=== PATIENT | male | born 1960 | race African-American/Black ===

== ENCOUNTER 2025-03-26 14:09 | Emergency (ER) | payer MEDICARE, SELFPAY ==
[2025-03-26] VITALS (21 sets, daily range): BP systolic 117–159; BP diastolic 87–107; PULSE 102–119; TEMP 36.7; O2SAT 71–98; BMI 29.5
--- OUTSIDE RECORDS SUMMARY | 2025-03-26 14:16 | XMS_ITS | Clinical Summary ---
Author Organization [facility] Address [address] [place] [address] Care Team Providers Care Sugar Cane Farm Manager Name Role Phone Unavailable Primary Care Provider Unavailabl e Allergies No known active allergies Medications atorvastatin (LIPITOR) 40 mg tablet Take 1 tablet by mouth once daily. 45 tablet 05/07/2020 Active losartan (COZAAR) 25 mg tablet Take 1 tablet by mouth once daily. 45 tablet 05/07/2020 Active amLODIPine (NORVASC) 5 mg tablet Take 1 tablet by mouth twice daily. 1 tablet 3 08/08/2020 Active Active Problems Problem Noted Date Diagnosed Date Syncope 04/19/2020 Obesity, Class III, BMI >= 40 04/19/2020 Pulmonary embolism 04/19/2020 Right femoral vein DVT 04/19/2020 Stroke 04/19/2020 HTN (hypertension) 04/19/2020 Family History Medical History Relation Comments Stroke Maternal Grandmother Hypertension Mother Hypertension Son Relation Status Comments Maternal Grandmother Mother Son Other Social History Tobacco Use Types Packs/Day Years Used Date Smoking Tobacco: Never Smokeless Tobacco: Never Alcohol Use Standard Drinks/Week Comments Yes 0 (1 standard drink = 0.6 oz pur e alcohol) socially Overall Financial Resource Strain (CARDIA) Answe r Date Recorded How hard is it for you to pa y for the very basics like food, housing, medical care, and heating? Not hard at all 05/02/2020 Hunger Vital Sign Answer Date Recorded Within the past 12 months, y ou worried that your food would run out before you got the money to buy more. Never true 05/02/20 20 Within the past 12 months, t he food you bought just didn't last and you didn't have money to get more. Never true 05/02/2020 PRAPARE - Transportation Answer Date Re corded In the past 12 months, has l ack of transportation kept you from medical appointments or from getting medications? No 04/22 In the past 12 months, has l ack of transportation kept you from meetings, work, or from getting things needed for daily living? No 05/02/2020 Area Deprivation Index Answer Date Sampson rded National Score (1-100), lower number is lower ri sk Not on file 07/28/2020 State Score (1-10), lower number is lower risk N ot on file 07/28/2020 Data from: https://www.neighborhoodatlas.medicine.[facility].edu/. Last address used for calculation Not on file 07/28/2020 Education Answer Date Recorded What is the highest level of school you have completed or the highest degree you have received? Bachelor's degree (e.g., BA, AB, BS) 04/19/2020 Sex and Gender Information Value Date Recorded Sex Assigned at Not on file Legal Sex Male 11:45 AM EDT Gender Identity Not on file Sexual Orientation Not on file Last Filed Vital Signs Vital Sign Reading Time Taken Comments Blood Pressure 160/98 06/13/2020 9:18 AM EDT Pulse 68 06/13/2020 9:18 AM EDT Temperature 36.9 C (98.4 F) 05/07/2020 9:59 AM EDT Respiratory Rate 18 05/07/2020 9:59 AM EDT Oxygen Saturation 99% 05/07/2020 9:59 AM EDT Inhaled Oxygen Concentration - - Weight 109.3 kg (241 lb) 06/13/2020 9:18 AM EDT Height 175.3 cm (5' 9 ) 06/13/2020 9:18 AM EDT Body Mass Index 35.59 06/13/2020 9:18 AM EDT Plan of Treatment Health Maintenance Due Date Last Done Comments Anxiety Screening 1976 Depression Screening 1976 Hepatitis C Screening 1976 DTaP,Tdap,Td Vaccine (1 - Tdap) [address] Colonography 10/21/2003 Cologuard (FIT-DNA) 10/21/2003 Colonoscopy 10/21/2003 Colorectal Cancer Screening 10/21/2003 Fecal Occult Blood 10/21/2003 Prostate Cancer Screening Discussion 10/21/2003 Sigmoidoscopy 10/21/2003 Pneumococcal Vaccine: 50+ (1 of 1 - PCV) 2008 Shingrix Vaccine (1 of 2) 2008 Diabetes Screening 04/21/2023 04/21/2020, 04/20/2020 Advance Directive Discussion 08/22/2024 Influenza Vaccine (#1) 2025 0 (Patient/Parent/Guardian Counseled and Declines) RSV Vaccine (1 - 1-dose 75+ series) 2033 Procedures Procedure Name Priority Date/Time Associated Diagnosis Comments COMPRE META PANL STAT 04/21/2020 10:5 7 AM EDT from Last 3 Months or Most Recently Relevant to Health Maintenance Results * COMPREHENSIVE METABOLIC PANEL (AK,AV,EU,FV,HL,MANI,MM,SP) (04/21/2020 10:57 AM EDT) Protein, Total 7.7 6.0 - 8.4 g/dL 04/21/2020 12:31 PM [facility] Albumin 4.2 3.5 - 5.0 g/dL 04/21/2020 12:31 PM [facility] Calcium 9.0 8.5 - 10.5 mg/dL 04/21/2020 12:34 PM [facility] Bilirubin, Total 0.9 0.2 - 1.3 mg/dL 04/21/2020 12:31 PM [facility] Alkaline Phosphatase 77 38 - 113 U/L 04/21/2020 12:31 PM [facility] AST 18 7 - 40 U/L 04/21/2020 12:31 PM [facility] Glucose 94 65 - 100 mg/dL 04/21/2020 12:31 PM [facility] BUN 13 10 - 25 mg/dL 04/21/2020 12:31 PM [facility] Creatinine 1.07 0.70 - 1.40 mg/dL 04/21/2020 12:31 PM [facility] Sodium 135 135 - 146 mmol/L 04/21/2020 12:31 PM [facility] Potassium 4.0 3.5 - 5.0 mmol/L 04/21/2020 12:31 PM EDT [facility] Chloride 99 98 - 110 mmol/L 04/21/2020 12:31 PM EDT [facility] CO2 26 23 - 32 mmol/L 04/21/2020 12:31 PM EDT [facility] Anion Gap 10 9 - 18 mmol/L 04/21/2020 12:31 PM EDT [facility] ALT 16 5 - 50 U/L 04/21/2020 12:31 PM EDT [facility] eGFR- >60 >60 04/21/2020 12:31 PM EDT [facility] eGFR-All Other Races >60 >60 . 04/21/2020 12:31 PM EDT 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
--- OUTSIDE RECORDS SUMMARY | 2025-03-26 14:16 | XMS_ITS | Clinical Summary ---
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 Overview (12/04/2021): Originally entered on incorrect patient on 09/01/2021 by Xavi Pham MD Acute lacunar infarction 12/04/2021 Overview (12/04/2021): Originally entered on incorrect patient on 09/01/2021 by Xavi Pham MD Social History Tobacco Use Types Packs/Day Years Used Date Smoking Tobacco: Never Assessed Sex and Gender Information Value Date Recorded Sex Assigned at Not on file Legal Sex Male 2:37 PM EDT Gender Identity Not on file Sexual Orientation Not on file Last Filed Vital Signs Vital Sign Reading Time Taken Comments Blood Pressure 154/84 09/03/2021 1:00 PM EST Pulse 102 09/03/2021 1:00 PM EST Temperature 36.7 C (98 F) 09/03/2021 11:00 AM EST Respiratory Rate 26 09/03/2021 1:00 PM EST Oxygen Saturation 95% 09/03/2021 1:00 PM EST Inhaled Oxygen Concentration - - Weight 92.4 kg (203 lb 9.9 oz) 08/30/2021 1:19 P M EST Height 175.3 cm (5' 9 ) 08/30/2021 1:19 PM EST Body Mass Index 30.07 08/30/2021 1:19 PM EST Plan of Treatment Not on file Advance Directives * Full Code (Latest Code Status on File) Date Activated Date Inactivated Comments 08/30/2021 8:33 PM 09/03/2021 7:17 PM
--- OUTSIDE RECORDS SUMMARY | 2025-03-26 14:16 | XMS_ITS | Encounter Summary ---
Author Organization [facility] Address [address] [place] [address] Care Team Providers Care Microbiology Soil Scientist Name Role Phone Unavailable Primary Care Provider Unavailabl e Source Comments In the event this information is protected by the Federal Confidentiality of Alcohol and Drug AbusePatient Records regulations: The Federal rules restrict any use of the information to criminally investigate or prosecute any alcohol or drug abuse patient.[facility] Encounter Details Date Type Department Care Team (Late st Contact Info) Description 05/05/2020 Abstract Pulmonary Medicine [address] [place] [address] Nubia Houston MD [address] [place], [place] [id number] Social History Tobacco Use Types Packs/Day Years [...] things needed for daily living? No 05/02/2020 Education Answer Date Recorded What is the highest level of school you have completed or the highest degree you have received? Bachelor's degree (e.g., BA, AB, BS) 04/19/2020 Sex and Gender Information Value Date Recorded Sex Assigned at Not on file Legal Sex Male 11:45 AM EDT Gender Identity Not on file Sexual Orientation Not on file COVID-19 Exposure Response Date Recorded In the last month, have you been in contact with someone who was confirmed or suspected to have Coronavirus / COVID-19? Unable to assess 05/08/2020 8:12 AM EDT documented as of this encounter Functional Status * Are you deaf or do you have serious difficulty hearing? Answer Date of Assessment Author No 04/22/2020 1:57 PM Janki Perez RN * Are you blind or do you have serious difficulty seeing, even when wearing glasses? Answer Date of Assessment Author No 04/22/2020 1:57 PM Janki Perez RN * Do you have serious difficulty walking or climbing stairs? Answer Date of Assessment Author No 04/22/2020 1:57 PM Janki Perez RN * Do you have difficulty dressing or bathing? Answer Date of Assessment Author No 04/22/2020 1:57 PM Janki Perez RN * Because of a physical, mental, or emotional condition, do you have difficulty doing errands alone such as visiting a doctor's office or shopping? Answer Date of Assessment Author No 04/22/2020 1:57 PM Janki Perez RN documented as of this encounter Mental Status * Because of a physical, mental, or emotional condition, do you have serious difficulty concentrating, remembering, or making decisions? Answer Entry Date Author No 04/22/2020 1:57 PM [facility] Janki Ivy RN documented in this encounter Plan of Treatment Not on file documented as of this encounter Visit Diagnoses Not on filedocumented in this encounter
--- OUTSIDE RECORDS SUMMARY | 2025-03-26 14:16 | XMS_ITS | Encounter Summary ---
Author Organization [facility] Address [address] [place] [address] Care Team Providers Care Manager Art Name Role Phone Unavailable Primary Care Provider Unavailabl e Source Comments In the event this information is protected by the Federal Confidentiality of Alcohol and Drug AbusePatient Records regulations: The Federal rules restrict any use of the information to criminally investigate or prosecute any alcohol or drug abuse patient.[facility] Encounter Details Date Type Department Care Team (Late st Contact Info) Description 10/21/2023 [place] [address] Provider, [facility] Medicare Coverage of Physical Exams Social History Tobacco Use Types Packs/Day Years [...] N ot on file 07/28/2020 Data from: https://www.neighborhoodatlas.medicine.[facility].edu/. Last address used for calculation Not on [...] on file Sexual Orientation Not on file documented as of this encounter Functional Status [...] Entry Date Author No 04/22/2020 1:57 PM EDT Janki Ivy RN documented in this encounter Plan of Treatment Not on file documented as of this encounter Visit Diagnoses Not on filedocumented in this encounter
--- OUTSIDE RECORDS SUMMARY | 2025-03-26 14:16 | XMS_ITS | Encounter Summary ---
Author Organization [facility] Address [id number] [address] [place] [address] Care Team Providers Care Explosive Specialist Name Role Phone Olimpia Wong MD Primary Care Provider [phone] Encounter Details Date Type Department Care Team (Late st Contact Info) Description 03/07/2022 Telephone [facility] Pulmonary/Sleep Medicine [address] [phone] Sindi Lerma RN Social History Tobacco Use Types Packs/Day Years Used Date Smoking Tobacco: Never Smokeless Tobacco: Never Alcohol Use Standard Drinks/Week Comments Not Asked 0 (1 standard drink = 0.6 oz pur e alcohol) occasionally Childcare Answer Date Recorded Childcare Unknown 09/03/2020 Employment Answer Date Recorded Employment Unknown 09/03/2020 Purpose - Life Answer Date Recorded Purpose and direction in life Unknown Sex and Gender Information Value Date Recorded Sex Assigned at Not on file Legal Sex Male 2:27 PM EST Gender Identity Not on file Sexual Orientation Not on file documented as of this encounter Miscellaneous Notes * Telephone Encounter - Sindi Lerma RN - 03/07/2022 9:38 AM EDT Please mail pt CTA order sched villanueva him, I messaged him * Telephone Encounter - Sahra Sanchez RN - 03/07/2022 9:38 AM EDT Order mailed documented in this encounter Plan of Treatment Not on file documented as of this encounter Visit Diagnoses Not on filedocumented in this encounter Care Teams Explosive Specialist Relationship Specialty Start Date End Date Olimpia Wong MD [address] [place] [address] PCP - General Family Medicine 09/03/20 documented as of this encounter
--- NOTE | 2025-03-26 14:26 | ECG_ITS ---
The [facility] Test Date: 2025-03-26 Pat Name: ARTEMIO CORDON Department: Room: - Gender: Male Quantitative Analyst: : 1960 Requested By: Order Number: [id number] Reading MD: CAMDEN BAILEY M.D. Measurements Intervals Faber Rate: 109 P: 87 NE: 134 QRS: 75 QRSD: 96 T: -82 QT: 334 QTc: 398 Interpretive Statements 1120 Sinus tachycardia [address] depression 4664 Twave abnormality, possible inferior ischemia 9150 abnormal ECG Compared to ECG 04/18/2020 17:19:25 Right-axis deviation no longer present ST (T wave) deviation still present Possible ischemia still present Electronically Signed On 03-27-2025 6:53:50 EDT by CAMDEN BAILEY M.D.
[2025-03-26 14:35] LABS: Hematocrit 41.3 % (42.0-54.0); Hemoglobin 13.9 g/dL (14.0-18.0); Immature Granulocytes Abs Auto 0.02 10^3/uL (0.00-0.03); Immature Granulocytes Pct Auto 0.3 % (0.0-0.5); Lymphocytes Absolute Auto 2.0 10^3/uL (1.2-3.8); Mean Corpuscular HGB Conc 33.7 g/dL (29.9-35.2); Mean Corpuscular Hemoglobin 27.1 pg (25.9-34.0); Mean Corpuscular Volume 80.7 fL (80.0-94.0); Platelet Count 238 10^3/uL (150-450); Red Blood Count 5.12 10^6/uL (4.70-6.10); White Blood Count 6.0 10^3/uL (4.0-11.0)
--- NOTE | 2025-03-26 14:40 | XR_ITS ---
The [address] [address] Patient Name: ARTEMIO CORDON MRN: [id number] date: 1960 Sex: M Assigned Patient Location: ED.MAIN Current Patient Location: ER Accession/Order Number: [id number] Exam Date: 03/26/2025 14:46 Report Date: 03/26/2025 14:47 At the request of: SOHAN MOLINA MD Procedure: XR chest 1V Single view chest: CLINICAL HISTORY: weakness COMPARISON: Chest 04/18/2020 FINDINGS: The heart is normal in size. The lungs are clear. The pulmonary vasculature is normal. Mediastinum and hilar regions are unremarkable. No pleural effusions are seen. Visualized bones are intact. XR/XR chest 1V IMPRESSION: NEGATIVE CHEST. Impression dictated by: Ronal Maya Jr., DSilvestreOSilvestre 03/26/2025 2:47 PM Dictation Location: [place] [address] Electronically authenticated by: [id number] Y Date: 03/26/2025 14:47
--- NOTE | 2025-03-26 14:50 | CT_ITS ---
The [address] [address] Patient Name: ARTEMIO CORDON MRN: [id number] date: 1960 Sex: M Assigned Patient Location: ER Current Patient Location: .MAIN Accession/Order Number: [id number] Exam Date: 03/26/2025 15:05 Report Date: 03/26/2025 15:10 At the request of: SOHAN MOLINA MD Procedure: CT head/brain wo con CT BRAIN WITHOUT CONTRAST: CLINICAL HISTORY: ams COMPARISON: CT brain 04/18/2020 TECHNIQUE: Contiguous axial unenhanced images were obtained through the brain. This CT exam was performed using one or more following dose reduction techniques: Automated exposure control, adjustment of the mA and/or kV according to patient size, or use of iterative reconstruction technique. FINDINGS: There is no evidence of midline shift, intra or extra-axial fluid collection, hemorrhage or CT evidence of stroke. Cortical atrophy with severe chronic microvascular ischemic changes with lacunar infarcts involving the basal ganglia regions grossly similar to the 2019 study. There also appears to be a new lacunar infarct involving the right thalamus since 2019. Posterior fossa appears unremarkable. Visualized intraorbital contents demonstrate no acute findings. Visualized paranasal sinuses are clear. The surrounding soft tissues are normal. CT/CT head/brain wo con IMPRESSION: NO ACUTE INTRACRANIAL ABNORMALITY. Impression dictated by: Ronal Maya Jr., D.O. 03/26/2025 3:10 PM Dictation Location: [place] [address] Electronically authenticated by: [id number] Y Date: 03/26/2025 15:10
[2025-03-26 15:03] LABS: Lactate/Lactic Acid 1.6 mmol/L (0.4-2.0)
[2025-03-26 15:10] LABS: Alanine Aminotransferase 35 U/L (16-63); Albumin Globulin Ratio 0.9; Albumin Level 3.8 g/dL (3.4-5.0); Alkaline Phosphatase 88 U/L (46-116); Anion Gap 13.6; Aspartate Amino Transferase 49 U/L (15-37); Blood Urea Nitrogen 9.0 mg/dL (7.0-18.0); Calcium 9.2 mg/dL (8.5-10.1); Carbon Dioxide 29.5 mmol/L (21.0-32.0); Chloride 98 mmol/L (98-107); Estimated GFR (African America >60 (>=60 mL/min/1.73m^2); Estimated GFR (Non-African Ame >60 (>=60 mL/min/1.73m^2); Globulin 4.3 g/dL; Glucose 110 mg/dL (74-106); Potassium 3.1 mmol/L (3.5-5.1); Sodium 138 mmol/L (136-145); Total Protein 8.1 g/dL (6.4-8.2)
[2025-03-26] MEDS: 0.9 % SODIUM CHLORIDE 1,000 ML 500 ML IV (15:54)
--- NOTE | 2025-03-26 16:06 | ED_ITS ---
HPI HPI - General Adult General Chief complaint: Weakness Stated complaint: WEAKNESS Time Seen by Provider: 03/26/25 14:14 Mode of arrival: ambulance History of Present Illness HPI narrative: The patient is 64-year-old male was brought to us by the family by the EMS after he has been noted for the last 2 weeks that not acting himself, the patient himself denies any complaints and review of systems, the patient denies any chest pain nausea vomiting although he was vomiting before arrival and he did vomit here in the ER 1 time, The patient has been generally weak and tired and been sleeping all day and not acting himself Related Data Home Medications ?Medication ?Instructions ?Recorded ?Confirmed amlodipine .ROUTE 03/26/25 clopidogrel .ROUTE 03/26/25 losartan .ROUTE 03/26/25 risankizumab-rzaa subcut 03/26/25 Review of Systems ROS Status of ROS 10 or more systems reviewed and unremark able except as noted in history and below Exam Narrative Exam Narrative: Nurses notes and vital signs reviewed and patient is not hypoxic. General: Appears weak and disheveled Skin: Warm, dry, no pallor noted. No rash. Head: Normocephalic, atraumatic. Neck: Supple, non-tender. Eye: Pupils are equal, round and EOMI. No scleral icterus. Ears, Nose, Mouth, and Throat: TM are clear, no nasal mucosal hypertrophy. Oral mucosa is moist, no posterior oropharynx erythema, uvula is mid-line Cardiovascular: Regular Rate and Rhythm without murmur, gallop or rub. Respiratory: No accessory muscle use or respiratory distress. Lungs are clear to auscultation, no wheezing, rales or rhonchi Chest Wall: no tenderness Back: No midline thoracic or lumbar vertebral tenderness. No CVA tenderness Musculoskeletal: normal ROM, no calf or popliteal tenderness, chronic lower extremity edema 1+ GI: Abdomen is soft, non-distended. Normal bowel sounds. No masses appreciated. No tenderness to palpation. No rebound, guarding, or rigidity noted. Neurological: A&O x4. No cranial nerve dysfunction observed. There is a weakness in the left side that is old according to the family that is mild at the patient is still able to fully use his left upper and lower extremity and there was no cranial nerve pathology Constitutional Vital Signs, click to edit/add: Last Vital Signs Temp 98.1 F 03/26/25 14:12 Pulse 111 H 03/26/25 17:30 Resp 14 03/26/25 17:30 BP 151/104 H 03/26/25 17:30 Pulse Ox 98 03/26/25 17:30 O2 Del Method Room Air 03/26/25 14:49 Course Vital Signs Vital signs: Vital Signs Temperature 98.1 F 03/26/25 14:12 Pulse Rate 110 H 03/26/25 14:12 Respiratory Rate 18 03/26/25 14:12 Blood Pressure 144/103 H 03/26/25 14:12 Pulse Oximetry 95 03/26/25 14:12 Oxygen Delivery Method Room Air 03/26/25 14:12 Temperature 98.1 F 03/26/25 14:12 Pulse Rate 111 H 03/26/25 17:30 Respiratory Rate 14 03/26/25 17:30 Blood Pressure 151/104 H 03/26/25 17:30 Pulse Oximetry 98 03/26/25 17:30 Oxygen Delivery Method Room Air 03/26/25 14:49 Medical Decision Making MDM Narrative Medical decision making narrative: It was noted that the patient EKG was showing sinus tachycardia with a T wave inversion in lead to 3 and aVF in addition to V6 T wave inversion Initial troponin was negative and the patient CBC and chemistry showed no acute significant pathology but he was provided with some fluid to help with his tachycardia Chest x-ray showed no acute pathology CT head was negative The patient had also lactic acid that was negative and the ammonia level neagtive It was obvious that the patient is generally tired and weak but he did not have any complaint and his repeated troponin came up to about 2400 I did discuss the case with Dr Bergman and cardiology service and requested the patient to be started on heparin and transferred to [facility] for further evaluation The patient was started on heparin according to the ACS protocol , will obtain a CT PE to rule out any underlying pathology as well that could be causing the right heart strain and elevated troponin The patient awaiting discussion with the hospitalist in [facility] Lab Data Labs: Lab Results 03/26/25 03/26/25 03/26/25 Range/Units 14:30 16:25 16:45 WBC 6.0 (4.0-11.0) 10^3/uL RBC 5.12 (4.70-6.10) 10^6/uL Hgb 13.9 L (14.0-18.0) g/dL Hct 41.3 L (42.0-54.0) % MCV 80.7 (80.0-94.0) fL MCH 27.1 (25.9-34.0) pg MCHC 33.7 (29.9-35.2) g/dL RDW 13.4 (11.0-15.0) % Plt Count 238 (150-450) 10^3/uL MPV 10.3 (9.5-13.5) fL Neut % (Auto) 53.3 (43.0-75.0) % Lymph % (Auto) 33.1 (20.5-60.0) % Graves % (Auto) 11.9 (1.7-12.0) % Eos % (Auto) 1.2 (0.9-7.0) % Baso % (Auto) 0.2 (0.2-2.0) % Neut # (Auto) 3.2 (1.4-6.5) 10^3/uL Lymph # (Auto) 2.0 (1.2-3.8) 10^3/uL Graves # (Auto) 0.7 (0.3-0.8) 10^3/uL Eos # (Auto) 0.1 (0.0-0.7) 10^3/uL Baso # (Auto) 0.0 (0.0-0.1) 10^3/uL Abs Immat Gran (auto) 0.02 (0.00-0.03) 10^3/uL Imm/Tot Granulo (auto) 0.3 (0.0-0.5) % Sodium 138 (136-145) mmol/L Potassium 3.1 L (3.5-5.1) mmol/L Chloride 98 (98-107) mmol/L Carbon Dioxide 29.5 (21.0-32.0) mmol/L Anion Gap 13.6 BUN 9.0 (7.0-18.0) mg/dL Creatinine 0.95 (0.70-1.30) mg/dL Est GFR ( Amer) >60 (>=60 mL/min/1.73m^2) Est GFR (Non-Af Amer) >60 (>=60 mL/min/1.73m^2) BUN/Creatinine Ratio 9.5 Glucose 110 H (74-106) mg/dL Lactate 1.6 1.0 (0.4-2.0) mmol/L Calcium 9.2 (8.5-10.1) mg/dL Total Bilirubin 1.3 H (0.2-1.0) mg/dL AST 49 H (15-37) U/L ALT 35 (16-63) U/L Alkaline Phosphatase 88 (46-116) U/L Ammonia 12 (11-32) umol/L Troponin I High Sens 60.8 (4.0-76.1) pg/mL Total Protein 8.1 (6.4-8.2) g/dL Albumin 3.8 (3.4-5.0) g/dL Globulin 4.3 g/dL Albumin/Globulin Ratio 0.9 Urine Color Lt. yellow (YELLOW) Urine Clarity Clear (CLEAR) Urine pH 7.0 (5.0-9.0) Ur Specific [place] 1.010 (1.005-1.025) Urine Protein Negative (NEG/TRACE) mg/dL Urine Glucose (UA) Negative (NEGATIVE) mg/dL Urine Ketones 15 A (NEGATIVE) mg/dL Urine Occult Blood Negative (NEGATIVE) Urine Nitrite Negative (NEGATIVE) Urine Bilirubin Negative (NEGATIVE) Urine Urobilinogen 1.0 (0.2-1.0) EU/dL Ur Leukocyte Esterase Negative (NEGATIVE) 03/26/25 Range/Units 17:41 WBC (4.0-11.0) 10^3/uL RBC (4.70-6.10) 10^6/uL Hgb (14.0-18.0) g/dL Hct (42.0-54.0) % MCV (80.0-94.0) fL MCH (25.9-34.0) pg MCHC (29.9-35.2) g/dL RDW (11.0-15.0) % Plt Count (150-450) 10^3/uL MPV (9.5-13.5) fL Neut % (Auto) (43.0-75.0) % Lymph % (Auto) (20.5-60.0) % Graves % (Auto) (1.7-12.0) % Eos % (Auto) (0.9-7.0) % Baso % (Auto) (0.2-2.0) % Neut # (Auto) (1.4-6.5) 10^3/uL Lymph # (Auto) (1.2-3.8) 10^3/uL Graves # (Auto) (0.3-0.8) 10^3/uL Eos # (Auto) (0.0-0.7) 10^3/uL Baso # (Auto) (0.0-0.1) 10^3/uL Abs Immat Gran (auto) (0.00-0.03) 10^3/uL Imm/Tot Granulo (auto) (0.0-0.5) % Sodium (136-145) mmol/L Potassium (3.5-5.1) mmol/L Chloride (98-107) mmol/L Carbon Dioxide (21.0-32.0) mmol/L Anion Gap BUN (7.0-18.0) mg/dL Creatinine (0.70-1.30) mg/dL Est GFR ( Amer) (>=60 mL/min/1.73m^2) Est GFR (Non-Af Amer) (>=60 mL/min/1.73m^2) BUN/Creatinine Ratio Glucose (74-106) mg/dL Lactate (0.4-2.0) mmol/L Calcium (8.5-10.1) mg/dL Total Bilirubin (0.2-1.0) mg/dL AST (15-37) U/L ALT (16-63) U/L Alkaline Phosphatase (46-116) U/L Ammonia (11-32) umol/L Troponin I High Sens 2459.6 H* (4.0-76.1) pg/mL Total Protein (6.4-8.2) g/dL Albumin (3.4-5.0) g/dL Globulin g/dL Albumin/Globulin Ratio Urine Color (YELLOW) Urine Clarity (CLEAR) Urine pH (5.0-9.0) Ur Specific [place] (1.005-1.025) Urine Protein (NEG/TRACE) mg/dL Urine Glucose (UA) (NEGATIVE) mg/dL Urine Ketones (NEGATIVE) mg/dL Urine Occult Blood (NEGATIVE) Urine Nitrite (NEGATIVE) Urine Bilirubin (NEGATIVE) Urine Urobilinogen (0.2-1.0) EU/dL Ur Leukocyte Esterase (NEGATIVE) Discharge Plan Discharge Chief Complaint: Weakness Clinical Impression: Acute non-ST elevation myocardial infarction (NSTEMI), Weakness Patient Disposition: [facility] Time of Disposition Decision: 18:51
[2025-03-26 16:45] LABS: Ammonia 12 umol/L (11-32)
[2025-03-26 16:52] LABS: Lactate/Lactic Acid 1.0 mmol/L (0.4-2.0)
[2025-03-26 17:00] LABS: Glucose Urine UA NEGATIVE (NEGATIVE)
--- NOTE | 2025-03-26 17:01 | XR_ITS ---
The [address] [address] Patient Name: ARTEMIO CORDON MRN: [id number] date: 1960 Sex: M Assigned Patient Location: ER Current Patient Location: ER Accession/Order Number: [id number] Exam Date: 03/26/2025 17:03 Report Date: 03/26/2025 17:04 At the request of: SOHAN MOLINA MD Procedure: XR abdomen 1V Single view abdomen COMPARISON: None INDICATION: Small bowel obstruction FINDINGS: Mild to moderate stool burden. . No definite bowel obstruction. No radiopaque calcifications overlying the renal shadows. Degenerative changes lumbosacral junction. XR/XR abdomen 1V IMPRESSION: Nonspecific nonobstructive bowel gas pattern. Impression dictated by: Louis Rodrigues M.D. 03/26/2025 5:04 PM Dictation Location: [place] [address] Electronically authenticated by: [id number] Y Date: 03/26/2025 17:04
--- NOTE | 2025-03-26 18:09 | ECG_ITS ---
The [facility] Test Date: 2025-03-26 Pat Name: ARTEMIO CORDON Department: Room: - Gender: Male [employer]: : 1960 Requested By: [id number] Order Number: [id number] Reading MD: CAMDEN BAILEY M.D. Measurements Intervals Metter Rate: 112 P: 70 PA: 134 QRS: 63 QRSD: 96 T: 22 QT: 340 QTc: 406 Interpretive Statements 1120 Sinus tachycardia [address] depression 9150 abnormal ECG Compared to ECG 03/26/2025 14:20:42 ST (T wave) deviation still present Electronically Signed On 03-27-2025 6:54:56 EDT by CAMDEN BAILEY M.D.
--- NOTE | 2025-03-26 18:52 | CT_ITS ---
The [address] [address] Patient Name: ARTEMIO CORDON MRN: [id number] date: 1960 Sex: M Assigned Patient Location: ER Current Patient Location: ER Accession/Order Number: [id number] Exam Date: 03/26/2025 20:34 Report Date: 03/26/2025 20:41 At the request of: SOHAN MOLINA MD Procedure: CT angio chest CT ANGIOGRAM OF THE CHEST, PULMONARY EMBOLISM PROTOCOL: CLINICAL INFORMATION: Elevated troponin and shortness of breath TECHNIQUE: Following intravenous injection of contrast CT scans of the chest were obtained using pulmonary embolism protocol. Coronal and sagittal reconstructed images, as well as volume rendered CT pulmonary angiographic images were also submitted.The CT exam was performed using one or more of the following dose reduction techniques: Automated exposure control, adjustment of the MA and/or Kv according to patient size, or use of the iterative reconstruction technique. FINDINGS: Pulmonary Vasculature: Sagittal embolism multifocal lobar emboli involving both lower lobar upper lumbar right middle lobar and lingular branches. Mediastinum : Cardiomegaly. Motion through the intraventricular septum. Slight prominence of the right ventricle and slight bowing of the intraventricular septum could raise possibility for minimal straightening. Lungs: Mild hypoventilatory change. No focal consolidation, pneumothorax or pleural effusion. Upper abdomen: No acute findings Soft tissue/bones: Soft tissues surrounding the chest wall demonstrate no acute findings. Osseous structures demonstrate degenerative change. CT/CT angio chest IMPRESSION: Subtle embolism with multifocal bilateral lobar pulmonary embolism. Suspect mild strain, difficult to evaluate due to the motion. Discussed with Dr. Buck of the telephone 8:41 PM 03/26/2025 Impression dictated by: Louis Rodrigues M.D. 03/26/2025 8:41 PM Dictation Location: [place] [address] Electronically authenticated by: [id number] Y Date: 03/26/2025 20:41
[2025-03-26] MEDS: HEPARIN SODIUM,PORCINE/D5W 25,000 UNIT/500 ML IV.SOLN 19 UNIT IV (19:43)
[2025-03-26] MEDS: HEPARIN SODIUM (PORCINE) 5,000 UNIT/ML VIAL 4000 UNIT IV (19:43)
[2025-03-26 20:36] LABS: INR 1.15; Prothrombin Time 12.0 sec (9.0-11.6)
[2025-03-26] MEDS: HEPARIN SODIUM (PORCINE) 5,000 UNIT/ML VIAL 2000 UNIT IV (21:36)
[2025-03-26] MEDS: HEPARIN SODIUM,PORCINE/D5W 25,000 UNIT/500 ML IV.SOLN 28.332 UNIT IV (21:37)
[2025-03-26 21:48] LABS: NT Pro B Type Natriuretic Pept 102.0 pg/mL (<=900.0)
[2025-03-26 22:50] LABS: PTT Heparin Monitor 133.5 sec (43.5-61.5)
== END 2025-03-26 22:49 | disposition short-term general hospital (02) ==
PROVIDERS: Emergency Medicine; Emergency Provider Internal Medicine
DX: I21.4 Non-ST elevation (NSTEMI) myocardial infarction (principal); R53.1 Weakness
CPT/HCPCS: 36415; 70450; 71045; 71275; 74018; 80053; 81003; 82140; 83605; 83880; 84484; 85025; 85610; 85730; 93005; 96361; 96365; 96375; 96376; 99285; J1644; J2405; Q9967